=== PATIENT | male | born 1955 | race African-American/Black ===

== ENCOUNTER → 2016-11-21 | Outpatient (CLI) | payer OTHER ==
--- NOTE | 2016-11-21 15:59 | PCVCIMAG ---
APPROVED REPORT Study performed: 11/21/2016 13:47:31 EXAM: Comprehensive 2D, Doppler, and color-flow Echocardiogram Patient Location: Echo lab Status: routine Indications ICD: Cardiomegaly Cardiomyopathy Hypertension/HDD INCOMPLETEI INFERIOR WALL NV,PAROXYSMAL A FIB 2D Dimensions IVSd: 9.71 (7-11mm)LVOT Diam: 20.59 (18-24mm) LVDd: 66.60 mm PWd: 8.23 (7-11mm)Ascending Ao: 35.72 (22-36mm) LVDs: 61.19 (25-40mm) Left Atrium: 50.88 (27-40mm) Aortic Root: 24.18 mm LV Single Plane 4CH: 31.14 % LV Single Plane 2CH: 25.36 %Fitch's LVEF: 28.25 % Biplane EF: 28.5 % Volumes Left Atrial Volume (Systole) Single Plane 4CH: 92.34 mLSingle Plane 2CH: 88.75 mL LA ESV Index: 39.00 mL/m2 Aortic Valve AoV Peak Horace.: 1.27 m/s AO Peak Gr.: 6.41 mmHgLVOT Max P.16 mmHg LVOT Max V: 0.74 m/s MARTI Vmax: 1.93 cm2 Mitral Valve E/A Ratio: 0.5 MV Decel. Time: 182.28 ms MV E Max Horace.: 0.60 m/s MV A Horace.: 1.22 m/s IVRT: 114.19 ms TDI E/Lateral E': 12.00E/Medial E': 15.00 Medial E' Horace.: 0.04 m/s Lateral E' Horace.: 0.05 m/s Pulmonary Valve PV Peak Horace.: 0.99 m/sPV Peak Gr.: 3.95 mmHg Pulmonary Vein P Vein S: 0.55 m/sP Vein A: 0.28 m/s P Vein D: 0.38 m/sP Vein A Dur.: 90.0 msec P Vein S/D Ratio: 1.45 Tricuspid Valve TR Peak Horace.: 2.76 m/s TR Peak Gr.: 30.44 mmHg TV Vmax: 0.57 m/sPA Pressure: 37.00 mmHg Left Ventricle Left ventricle is severely dilated. Mild concentric left ventricular hypertrophy. Left ventricular systolic function is severely decreased globally LVEF is 25-30%. Mild diastolic dysfunction is present (impaired relaxation pattern). Right Ventricle Right ventricle is mildly dilated. The right ventricular systolic function is normal. Atria Left atrium is mildly dilated. The right atrium size is normal. Aortic Valve Aortic valve is trileaflet, mild aortic valve sclerosis. No aortic regurgitation is present. There is no aortic valvular stenosis. Mitral Valve The mitral valve is normal in structure. Mild mitral regurgitation. No evidence of mitral valve stenosis. Tricuspid Valve The tricuspid valve is normal in structure. There is mild tricuspid valve regurgitation noted with a PA pressure of 37mmHg.. Pulmonic Valve The pulmonary valve is normal in structure. There is no pulmonic valvular regurgitation. Great Vessels The aortic root is normal in size. The ascending aorta is normal in size. IVC is normal in size and collapses with >50% inspiration Pericardium There is no pericardial effusion. There is no pleural effusion. <Conclusion> Left ventricular systolic function is severely decreased globally LVEF 25-30%. Grade I diastolic dysfunction Left atrium is mildly dilated. Aortic valve is trileaflet, mild aortic valve sclerosis. No aortic regurgitation or stenosis The mitral valve is normal in structure. Mild mitral regurgitation. Pulmonary artery pressure of 37mmHg There is no pericardial effusion.
== END | disposition home or self-care (01) ==
LOC: PCVCIMAG 13:32
PROVIDERS: ATTEND Internal Medicine
DX: I34.0 Nonrheumatic mitral (valve) insufficiency (principal); I07.1 Rheumatic tricuspid insufficiency; I48.0 Paroxysmal atrial fibrillation; I10 Essential (primary) hypertension; I47.2 Ventricular tachycardia; I42.0 Dilated cardiomyopathy; E11.9 Type 2 diabetes mellitus without complications; E78.5 Hyperlipidemia, unspecified; Z95.810 Presence of automatic (implantable) cardiac defibrillator
CPT/HCPCS: 80061; 93005; 93306; G0463